=== PATIENT | male | born 1980 | race Caucasian/White ===

== ENCOUNTER 2021-04-29 16:54 | Emergency (ER) | payer MEDICAID ==
[~2021-04-29] VITALS: Ht 158.5 cm; Wt 84.1 kg
[2021-04-29 17:06] VITALS: BP 156/102
--- NOTE | 2021-04-29 17:20 | NUR ---
40 Y/O MALE BIB FOR C/O OF DIZZINESS AND GONZALEZ X 2 DAYS. GONZALEZ IS DULL NON-RADIATING 3/10. DENIES ANY CHANGES IN VISION. PT IS AOX4, ABLE TO MAKE NEEDS KNOWN. RESP EVEN AND UNLABORED ON RA. ABD SOFT AND NON-TENDER. DENIES N/V/D/CP AT THIS TIME. PMHX: DENIES ALLERGIES: DENIES HOME MEDS: DENIES
--- NOTE | 2021-04-29 17:35 | NUR ---
LAB AT BEDSIDE TO DRAW SPECIMENS
[2021-04-29 17:48] LABS: BASOPHILS % (AUTO) 0.6 % (0.0-2.0); EOSINOPHILS # (AUTO) 0.1 K/uL (0-0.4); EOSINOPHILS % (AUTO) 1.3 % (0.0-4.0); HEMATOCRIT 40.4 % (36-52); HEMOGLOBIN 14.2 g/dL (12.0-18.0); LYMPHOCYTES # (AUTO) 1.7 K/uL (2.0-11.5); LYMPHOCYTES % (AUTO) 34.8 % (20.5-51.1); MEAN CORPUSCULAR HEMOGLOBIN 32 pg (27-31); MEAN CORPUSCULAR HGB CONC 35 g/dL (33-37); MEAN CORPUSCULAR VOLUME 91.2 fL (80-94); MONOCYTES # (AUTO) 0.6 K/uL (0.8-1.0); MONOCYTES % (AUTO) 12.2 % (1.7-9.3); NEUTROPHILS # (AUTO) 2.5 K/uL (1.8-7.7); NEUTROPHILS % (AUTO) 51.1 % (42.2-75.2); PLATELET COUNT (AUTO) 310 K/uL (140-450); RED BLOOD CELL COUNT(AUTO) 4.43 MIL/uL (4.20-6.10); RED CELL DISTRIBUTION WIDTH 14.1 % (11.6-13.7); WHITE BLOOD COUNT (AUTO) 4.8 K/uL (4.8-10.8)
[2021-04-29 18:00] LABS: ANION GAP 11.3 (8-16); CARBON DIOXIDE 28.4 mmol/L (21-32); CREATININE 0.8 mg/dL (0.6-1.3); POTASSIUM 3.7 mmol/L (3.5-5.1)
--- NOTE | 2021-04-29 19:26 | NUR ---
PATIENT CLEARED FOR DISHCARGE AT THIS TIME. ADVISED TO FOLLOW UP WITH PCP AND RETURN IF CONDITON WORSENS. NO OTHER COMPLAINTS OR CONCERNS AT THIS TIME FOLLOWING DISCHAREG TEACHING.
[2021-04-29 19:27] VITALS: BP 131/64
== END 2021-04-29 19:26 | disposition home or self-care (01) ==
LOC: MED 16:54
DX: R42 Dizziness and giddiness (principal); R53.1 Weakness; R51.9 Headache, unspecified; R53.83 Other fatigue
CPT/HCPCS: 36415; 80048; 81002; 84484; 85025; 93005; 99284